=== PATIENT | female | born 1960 | race Caucasian/White ===

== ENCOUNTER 2020-10-16 05:58 | Inpatient (IN) ==
--- NOTE | 2020-10-09 13:29 | Anesthesiology Consultation ---
Date of Service October 09, 2020 Assessment & Plan (1) Encounter for pre-operative examination: Chart Review Chart Review: Acceptable Risk for Surgery (pending preop Covid testing and DOS coag ) and Patient NOT seen in Pre Admission Testing Discussed mildly elevated preop PT/INR with Dr. Galvez. PCP reviewed and aware and feels labs are stable. Per Dr. Galvez recommendations, will order full coag panel DOS to recheck. Per nursing assessment 10/08/2020, pt resides and works in [facility]. Works at [email or web address]. No recent exposure to Covid positive contacts. Wears mask, uses good hand hygiene and socially distances. No known Covid positive contacts or Covid related symptoms. No known Covid infection in the past 90 days. Pt scheduled for preop Covid testing 10/09/20 at [facility]= will await results. Patient seen by PCP 10/08/2020 = patient seen for preop visit. Per [facility] are stable. Recent chest x-ray and EKG reviewed and normal. Minimal WBC up seconda ry to recent Covid vaccine #1. Patient looks and feels well and in optimal medical condition. " Patient is cleared as an acceptable risk for right TKR... Risk include but not limited to infection, bleeding, clot, CVA, ID, " History Surgery Operation Date: 10/16/20 11:40 Proposed Procedures p Right Total Knee Arthroplasty - Sergio Romeo DO Height/Weight Height: 5 ft 7 in Weight: 136.078 kg Allergies Allergy/AdvReac Type Severity Reaction Status Date / Time No Known Allergies Allergy Verified 10/08/20 12:14 Medications Home Medications Medication Instructions Recorded Confirmed Last Taken acetaminophen [Tylenol Extra 1,000 mg PO Q6H PRN 07/29/20 10/08/20 Unknown Strength] atenolol 50 mg PO HS 07/29/20 10/08/20 Unknown cholecalciferol (vitamin D3) 50 mcg PO QAM 07/29/20 10/08/20 Unknown [Vitamin D3] febuxostat 40 mg PO QAM 07/29/20 10/08/20 Unknown omeprazole 20 mg PO QAM 07/29/20 10/08/20 Unknown sertraline 100 mg PO QAM 07/29/20 10/08/20 Unknown Past Medical History Medical History Anxiety Chronic kidney disease History of gastritis patient states that several years ago, workup for LIEN lead to an EGD which had some finding (? gastritis)- patient was put on omeprazole for this which she is still continuing/denies reflux Hypertension Morbid obesity Osteoarthritis Sleep apnea no device Past Family History Family History Father Family hx colonic polyps Uncle Family hx colonic polyps Uncle Family hx colonic polyps Family/Other Family hx colonic polyps Past Surgical History Surgical History History of cataract surgery left History of colonoscopy History of dilatation and curettage x2 History of esophagogastroduodenoscopy (EGD) History of laparoscopy for ovarian cyst Social History Smoking Status: Never smoker Do You Dip or Chew Tobacco: No Hx Alcohol Use: No Alcohol type: beer alcohol intake frequency: holidays/special occasions only Hx Substance Use: No Testing Laboratory Results 10/07/20= WBC: 11.16 H/H: 14.3/44.4 PLATELETS: 261 SODIUM: 133 POTASSIUM: 4.0 CHLORIDE: 100 CO2: 26 BUN: 24.8 CREATININE: 1.28 GLUCOSE: 90 HGB A1C: 5.5 PT: 13.8 INR: 1.20 UA: Negative Electrocardiogram Date: 08/03/20 Sinus rhythm at 65 bpm. Chest X-Ray Date: 08/02/20 Findings: + NAD
--- NOTE | 2020-10-09 14:23 | History & Physical Report ---
Date of Service October 09, 2020 date of surgery: 10/16/20 Procedure: Right Total Knee Arthroplasty Assessment & Plan (1) Arthritis of right knee: Further care discussed with patient and at this point in time has failed conservative measures and would like to proceed with a Right total knee replacement. Plan on discharge will be home with home health physical therapy. DVT prophalaxis with TEDs, SCDs and will also place on aspirin 81 mg p.o. b.i.d. for a month postop. Patient will have follow up appointment in our office two weeks post op for staple/suture removal and re-evaluation. Patient otherwise has no other questions or concerns. History of Present Illness Chief Complaint: Right knee pain Primary Care Provider: Dorothy Purcell Ms Meeks is a 59 year old female who complains of Right knee pain, presents for pre-op eval prior to a right total knee replacement. She presents with pain, decreased rom and stiffness in her right knee. She states that the symptoms have been chronic non-traumatic. her symptoms occur constantly with intermittent worsening. Currently the patient states that the symptoms are moderate. The pain is described as aching and throbbing. She rates her current pain as 6/10. The symptoms are aggravated by daily activities, kneeling and movement. she states that she has tried physical therapy as well as previous cortisone and visco injections without relief. she has tried IBU and now not able to take due to kidney disease. she does wear a brace on her right side. Allergies Allergy/AdvReac Type Severity Reaction Status Date / Time No Known Allergies Allergy Verified 10/08/20 12:14 Home Medications Medication Instructions Recorded Confirmed Type acetaminophen [Tylenol Extra 1,000 mg PO Q6H PRN 07/29/20 10/08/20 History Strength] atenolol 50 mg PO HS 07/29/20 10/08/20 History cholecalciferol (vitamin D3) 50 mcg PO QAM 07/29/20 10/08/20 History [Vitamin D3] febuxostat 40 mg PO QAM 07/29/20 10/08/20 History omeprazole 20 mg PO QAM 07/29/20 10/08/20 History sertraline 100 mg PO QAM 07/29/20 10/08/20 History Past Med/Surg History Medical History Anxiety Chronic kidney disease History of gastritis patient states that several years ago, workup for LIEN lead to an EGD which had some finding (? gastritis)- patient was put on omeprazole for this which she is still continuing/denies reflux Hypertension Morbid obesity Osteoarthritis Sleep apnea no device Surgical History History of cataract surgery left History of colonoscopy History of dilatation and curettage x2 History of esophagogastroduodenoscopy (EGD) History of laparoscopy for ovarian cyst Family History Father Family hx colonic polyps Uncle Family hx colonic polyps Uncle Family hx colonic polyps Family/Other Family hx colonic polyps Social History Smoking Status: Never smoker Second Hand Exposure: No; Do You Dip or Chew Tobacco: No; Hx Alcohol Use: No Hx Substance Use: No Preferred Language: Yemeni Communication Ability: Effective Line Out Man Required: No Beliefs That Will Affect Care: None Current Living Situation: Family Other Information That Helps Us Care for You: No Feels Safe at Home: Yes Safety Concerns: Feels Safe At This Time Assistive Devices: Brace/Splint/Immobilizer and Glasses Assistive Devices Comment: KNEE BRACE PRN Review of Systems Review of Systems: All systems reviewed & are unremarkable except as noted in HPI & below Constitutional: no fever, no chills and no sweats Respiratory: no cough and no dyspnea Cardiovascular: no chest pain, no dyspnea and no orthopnea Gastrointestinal: no abdominal pain, no nausea and no vomiting Musculoskeletal: as per Subjective / HPI Physical Exam Physical Exam: HT: 5ft 7in WT: 136kg Constitutional: WD/WN, vitals as above no acute distress Respiratory: normal respiratory effort, lungs clear to auscultation no respiratory distress, no labored breathing and does not use accessory muscles Cardiovascular: RRR, no murmur, no edema Gastrointestinal (Abdomen): normal bowel sounds, soft, nontender, no hepatosplenomegaly Musculoskeletal: Knee: + knee abnormal to inspection (Right knee-), + effusion (+1 effusion), + limited ROM of knee (ROM 0/3/110), + knee ROM with crepitation, + joint line tenderness (medial joint line) and + Ru's sign positive; no deformity, no skin erythema, no ecchymosis, no valgus laxity, no varus laxity, anterior drawer test negative, Arpit's sign negative and pivot shift test ne gative Results & Data Results & Data ([facility]) Diagnostic Findings Right Knee X-ray: Right knee series showing advanced degenerative changes to the right knee, narrowing of the medial compartment and patello-femoral joint with patellar spurring noted, findings showing joint space narrowing of the medial compartment and patello-femoral joint, osteophyte formation and subchondral sclerosis noted. overall varus alignment. no acute bony pathology noted.
[2020-10-16] MEDS ORDERED: ACETAMINOPHEN 500 MG TAB PO SCH (06:00)
[2020-10-16] MEDS ORDERED: CeleBREX 200 MG CAP PO SCH ×2 (06:00→21:00)
[2020-10-16] MEDS ORDERED: TRANEXAMIC ACID 1,000 MG **IV Pre-op IV SCH (06:00)
[2020-10-16] MEDS ORDERED: dexAMETHasone 4 MG TAB PO SCH (06:00)
[2020-10-16] MEDS ORDERED: TRANEXAMIC ACID 1,000 MG **IV Intra-op IV SCH (06:00)
[2020-10-16] MEDS ORDERED: LR 500ML BOLUS, THEN 15ML/HR IV SCH (06:00)
[2020-10-16] MEDS ORDERED: FAMOTIDINE 20 MG TAB PO SCH (06:00)
[2020-10-16] MEDS ORDERED: METOCLOPRAMIDE HCL 10 MG TABLET PO SCH (06:00)
[2020-10-16] MEDS ORDERED: ROPIVACAINE 0.5% HCL/PF 150 MG, BUPIVACAINE 0.75% MPF 20 ML, EPINEPHrine 30MG/30ML (OR ... INSTIL SCH (06:00)
[2020-10-16] MEDS ORDERED: GABAPENTIN 600 MG DOSE PO SCH (06:00)
[2020-10-16] MEDS ORDERED: ROPIVACAINE 0.5% 5 MG/ML 30 ML VIAL ONE (06:26)
[2020-10-16] MEDS ORDERED: BUPIVACAINE 0.5 % 5 MG/1 ML PF 10ML VIAL ONE (06:26)
[2020-10-16 06:59] LABS: INR 1.1 (0.9-1.1); Partial Thromboplastin Time 26.9 Seconds (21.0-31.0); Prothrombin Time 10.7 Seconds (9.0-12.0)
[2020-10-16] MEDS ORDERED: ORTHO JOINT ANESTHETIC ONE (07:07)
[2020-10-16] MEDS ORDERED: BACITRACIN INJ 50,000 UNIT VIAL ONE (07:07)
[2020-10-16] MEDS ORDERED: GLYCOPYRROLATE 0.2 MG/ML VIAL ONE (07:10)
[2020-10-16] MEDS ORDERED: KETAMINE 50 MG/5 ML SYRINGE ONE (07:10)
[2020-10-16] MEDS ORDERED: ONDANSETRON INJ 2 MG/ML 2 ML VIAL ONE (07:10)
[2020-10-16] MEDS ORDERED: DEXAMETHASONE SOD INJ 4 MG/ML VIAL ONE (07:10)
[2020-10-16] MEDS ORDERED: PROPOFOL IV EMULSION 10 MG/ML 20 ML VIAL IV ONE (07:10)
[2020-10-16] MEDS ORDERED: LIDOCAINE HCL 2% 2 ML VIAL/AMP(20MG/ML) INFIL ONE (07:10)
[2020-10-16] MEDS ORDERED: MIDAZOLAM HCL 1 MG/ML 2ML VIAL ONE (07:10)
[2020-10-16] MEDS ORDERED: KETOROLAC 30 MG/ML VIAL ONE (07:10)
--- NOTE | 2020-10-16 07:14 | History & Physical Bridge Note ---
Date of Service October 16, 2020 History & Physical Bridge Note I have examined the patient, reviewed the History & Physical and in the interval since the performance of the History & Physical I have noted the following changes of clinical significance: no changes noted
[2020-10-16] MEDS ORDERED: ONDANSETRON INJ 2 MG/ML 2 ML VIAL IV PRN ×2 (08:04→12:05)
[2020-10-16] MEDS ORDERED: ePHEDrine sulfate 50 MG/ML AMP IV PRN (08:04)
[2020-10-16] MEDS ORDERED: HYDROmorphone INJ 1 MG/ML SYRINGE IV PRN ×2 (08:04→12:05)
[2020-10-16] MEDS ORDERED: PROMETHAZINE HCL 12.5 MG in SODIUM CHLORIDE 0.9% 50 ML IV PRN (08:04)
[2020-10-16] MEDS ORDERED: ATROPINE SULFATE 0.1 MG/ML 10ML SYR IV PRN (08:04)
--- NOTE | 2020-10-16 09:47 | Operative Report ---
Post Operative Report Pre & Post Diagnosis Operation Date: 10/16/20 08:20 Pre-Op Diagnosis: Osteoarthritis Right Knee Post-Op Diagnosis: Osteoarthritis Right Knee I identified the patient and participated in the time-out.: Yes Procedure Operation Date: 10/16/20 08:20 Actual Procedures p Right Total Knee Arthroplasty(Right) right total knee arthroplasty utilizing [employer] journey 2 nonblock TKA size 5 femur 4 tibia 10 polyethylene 32 oval patella BMI 48.4- Sergio Romeo DO Surgeon Sergio Romeo DO Theatre Program Director Emanuel [employer] Estimated Blood Loss 5 Findings Consistent with Post-Op Diagnosis Patient presents with a BMI 48.4 with severe end-stage DJD right knee subchondral sclerosis marginal osteophytes varus alignment eburnated [id number] with moderate to large effusion Specimens Bone and cartilage Drains Medium bore Hemovac Anesthesia Type MAC Spinal Regional Complications none Disposition Accompanied Patient To Recovery: No Disposition: Recovery Room Indications Patient presents with severe end-stage tricompartmental degenerative joint disease failed attempted conservative measures including physical therapy anti- inflammatories relative rest activity modifications corticosteroid injections viscosupplementation the above intraoperative findings were noted Description of Procedure After proper prepping and draping of the Right lower extremity anterior midline incision was made over the region of the extensor extensor mechanism after meticulous hemostasis was obtained and maintained in subcutaneous tissues a medial parapatellar incision was made The patella was subluxed lateralward the medial lateral gutter were cleaned from any hypertrophic synovitis and scar tissue of the distal femoral block was placed and the distal femoral osteotomy cut was made subsequently the chamfers anterior and posterior osteotomy cuts were made utilizing the 4-in-1 block the tibia was subsequently subluxed anteriorward medial and ateral meniscal remnants were excised in their entirety remnants of the anterior and posterior cruciate ligaments were excised in their entirety excellent exposure of the proximal tibia was obtained the tibial osteotomy guide was placed on the proximal tibial osteotomy cut was made once again the knee was irrigated with copious amounts of sterile saline solution the patella was subsequently everted lateralward thickened scar tissue around the patella was removed the patella was subsequently cut utilizing a freehand technique and was drilled prepared for final preparation and placement of patella socially flexion-extension gaps were checked and the equal and symmetric trials were placed to the appropriate femoral and tibial trials with poly-spacer being placed for equal flexion and extension gaps and full range of motion including extension to 0 and flexion to 140 the trial components after having been taken to recovery range of motion was subsequently removed meticulous hemostasis was obtained and maintained subsequently a knee block injection of joint cocktail including ropivacaine 0.5% 150 mg. Bupivacaine 0.5% epinephrine 1-200,030 mL's toradol 30 mg dexamethasone 4 mg ketamine 10 mg clonidine 100 micrograms normal saline solution 30 mg was infiltrated into the soft tissues of the posterior knee medial lateral gutters and periosteal synovium special attention was paid to protect neurovascular structures at all times subsequently trial components having been removed the knee was irrigated with sterile saline solution. debris was removed the proximal tibia was subsequently prepared and was made ready for the placement of the tibial component tibial component was also cemented and tamped into position the femoral component was subsequently placed and cemented in the position the patellar component was subsequently cemented in position because hemostasis once again obtained and maintained wound having been thoroughly irrigated with debridement and debridement lavage was performed as well as a medial parapatellar incision closed with #1 Vicryl in interrupted fashion subcutaneous was closed with #2 Vicryl skin was closed with skin clips. PA-C was necessary for prepping and drapping as well as wound closure of deep fascia Sub cutaneous tissue and skin and was necessary for the case. A sterile compressive dressing was placed patient was taken to recovery in stable condition of report dictated by Ousmane I attest to the content of the Intraoperative Record and any orders documented therein. Any exceptions are noted below. I attest to the content of the Intraoperative Record and any orders documented therein. Any exceptions are noted below.
--- NOTE | 2020-10-16 11:09 | XRay Report ---
XR knee RT 1 or 2V routine CLINICAL HISTORY: Postoperative evaluation. COMPARISON: None FINDINGS: Alignment of the total right knee arthroplasty is anatomic. There is no periprosthetic fra cture or unexpected radiopaque foreign body. There are skin rhea and drains. IMPRESSION: Expected findings following total right knee arthroplasty. ACT 112: Negative or not required by law. Electronically signed by: Red Dumont M.D. 10/16/2020 11:08 AM
--- NOTE | 2020-10-16 11:37 | Anesthesiology Progress Note ---
Date of Service October 16, 2020 Anesthesia Post Procedure Vital Signs Vital Signs: Temp Pulse Pulse Resp BP BP Pulse Ox 10/16/20 11:25 36.8 C 69 16 120/63 96 10/16/20 11:15 36.8 C 68 16 120/62 94 10/16/20 11:05 36.8 C 74 19 125/68 94 10/16/20 10:55 69 17 116/60 94 10/16/20 10:45 69 17 109/62 94 10/16/20 10:35 77 15 122/62 96 10/16/20 10:26 84 18 100/53 L 95 10/16/20 07:25 61 18 157/69 H 93 10/16/20 06:53 36.7 C 63 18 143/70 H 96 Transfer of Care Handoff Completed per policy Notes Mental Status: alert / awake / arousable Patient Amnestic to Procedure: Yes Nausea / Vomiting: adequately controlled Pain: adequately controlled Airway Patency, RR, SpO2: stable & adequate BP & HR: stable & adequate Hydration State: stable & adequate Anesthetic Complications: no major complications apparent
[2020-10-16] MEDS ORDERED: NALOXONE HCL 0.4 MG/1 ML VIAL/CARP IV PRN (12:05)
[2020-10-16] MEDS ORDERED: bisacodyL 10 MG SUPP PR PRN (12:05)
[2020-10-16] MEDS ORDERED: MAGNESIUM HYDROXIDE SUSP 30 ML UDC PO PRN (12:05)
[2020-10-16] MEDS ORDERED: diphenhydrAMINE Capsule 25 MG CAP PO PRN (12:05)
[2020-10-16] MEDS ORDERED: METOCLOPRAMIDE HCL INJ 5 MG/ML 2 ML VIAL IV PRN (12:05)
[2020-10-16] MEDS: ceFAZolin 2000MG 2,000 MG/15 ML SYR IV SCH ×2 (14:05→21:35)
[2020-10-16] MEDS: KETOROLAC 30 MG/ML VIAL IV SCH ×2 (14:05→18:43)
[2020-10-16] MEDS: ACETAMINOPHEN 500 MG TAB PO SCH ×2 (14:05→21:34)
[2020-10-16] MEDS: SODIUM CHLORIDE 0.9% 1000ML 1,000 ML IV SCH (16:19)
[2020-10-16] MEDS: oxyCODONE HCL IR 5 MG TAB (IMMEDIATE RELEASE) PO PRN (19:40)
[2020-10-16] MEDS: SENNA 8.6 MG TAB PO SCH (20:32)
[2020-10-16] MEDS: ATENOLOL 50 MG TABLET PO SCH (20:33)
[2020-10-16] MEDS: DOCUSATE SODIUM 100 MG CAP PO SCH (20:33)
[2020-10-16] MEDS: ASPIRIN 81 MG ECTAB PO SCH (21:35)
[2020-10-17] MEDS: KETOROLAC 30 MG/ML VIAL IV SCH ×2 (00:12→06:25)
[2020-10-17] MEDS: SODIUM CHLORIDE 0.9% 1000ML 1,000 ML IV SCH (00:28)
[2020-10-17 06:00] LABS: Hematocrit (blood only) 37.7 % (37-47); Hemoglobin 12.5 g/dL (12.0-16.0); Mean Corpuscular Hemoglobin 26.2 pg (25-34); Mean Corpuscular Hgb Conc 33.2 g/dL (32-36); Mean Corpuscular Volume 78.9 fL (80-100); Mean Platelet Volume 9.9 fL (7.4-10.4); Platelet Count 222 K/uL (130-400); RDW Coefficient of Variation 15.2 % (11.5-14.5); RDW Standard Deviation 44.1 fL (36.4-46.3); Red Blood Count 4.78 M/uL (4.2-5.4); White Blood Count 11.49 K/uL (4.8-10.8)
[2020-10-17] MEDS: ACETAMINOPHEN 500 MG TAB PO SCH ×3 (06:25→21:12)
[2020-10-17 06:34] LABS: BUN Creatinine Ratio 17.5 (10-20); Calcium 9.2 mg/dl (8.5-10.1); Creatinine Clr Calc Pharmacy 57.4 ml/min; Est GFR (African American) 42.4; Est GFR (Non-African American) 36.6
--- NOTE | 2020-10-17 07:20 | Orthopedic Progress Note ---
Date of Service October 17, 2020 Assessment & Plan (1) History of total right knee replacement: POD #1 s/p Right TKA pt/ot dvt proph with ELOM/SCD/ASA plan for d/c home with home health Admission and Anticipated Discharge Date Admission Date: October 16, 2020 Supervising Physician Co-Signing Physician Notes Patient seen and examined. I agree with LYNDSAY Carrasco's note as above. Pain is well controlled. She has been ambulatory. Expected postoperative pain level. Subjective POD #1 s/p Right TKA Review of Systems Constitutional: no fever, no chills and no sweats Respiratory: no cough and no dyspnea Cardiovascular: no chest pain and no dyspnea Gastrointestinal: no abdominal pain, no nausea and no vomiting Physical Exam Physical Exam: Vital Signs Temp 36.6 C 10/17/20 03:27 Pulse 77 10/17/20 03:27 Resp 16 10/17/20 03:27 BP 106/66 10/17/20 03:27 Pulse Ox 97 10/17/20 03:27 Intake & Output 10/16/20 10/17/20 10/17/20 18:59 06:59 18:59 Intake Total 1700 / 2700 1000 / 2700 Output Total 25 / 550 525 / 550 Balance 1675 / 2150 475 / 2150 Weight 140 kg Intake: IV 600 / 1600 1000 / 1600 Lr 1,000 ml @ 15 mls/hr IV . 500 / 500 Q24H [facility] Rx#:[id number] Nss 1000ML 1,0 00 ml @ 100 mls/ 1000 / 1000 hr IV .Q10H [facility] Rx#:[id number] TRANEXAMIC ACI D / 0.7% NACL 1, 100 / 100 000 mg In 100 ml @ 600 mls/hr IV TODAY@0600 [facility] Rx#:[id number] IV Perioperative 1100 / 1100 Output: Urine 200 / 200 Estimated Blood Loss 5 / 5 Drain Output 20 / 345 325 / 345 Right Knee Hem ovac 20 / 345 325 / 345 Other: # Unmeasured Voi ds 1 Constitutional: WD/WN, vitals as above no acute distress Musculoskeletal: Right Leg: NVDI, calf SNT, negative jose sign. DP palpable, able to wiggle toes/ankle movement without difficulty. dressing clean dry and intact. Results & Data ([facility]) Vital Signs (Past 12 Hours) Vital Signs Temp Pulse Resp BP Pulse Ox 10/17/20 03:27 36.6 C 77 16 106/66 97 10/16/20 22:58 36.5 C 52 L 16 97/61 L 97 10/16/20 20:30 70 133/75 Laboratory Results Laboratory Results WBC 11.49 K/uL (4.8-10.8) H 10/17/20 05:43 RBC 4.78 M/uL (4.2-5.4) 10/17/20 05:43 Hgb 12.5 g/dL (12.0-16.0) 10/17/20 05:43 Hct 37.7 % (37-47) 10/17/20 05:43 MCV 78.9 fL (80-100) L 10/17/20 05:43 MCH 26.2 pg (25-34) 10/17/20 05:43 MCHC 33.2 g/dL (32-36) 10/17/20 05:43 RDW Std Deviation 44.1 fL (36.4-46.3) 10/17/20 05:43 RDW Coeff of Adi 15.2 % (11.5-14.5) H 10/17/20 05:43 Plt Count 222 K/uL (130-400) 10/17/20 05:43 MPV 9.9 fL (7.4-10.4) 10/17/20 05:43 PT 10.7 Seconds (9.0-12.0) 10/16/20 06:36 INR 1.1 (0.9-1.1) 10/16/20 06:36 APTT 26.9 Seconds (21.0-31.0) 10/16/20 06:36 PTT Ratio 1.0 10/16/20 06:36 Sodium 135 mmol/L (136-145) L 10/17/20 05:43 Potassium 5.0 mmol/L (3.5-5.1) 10/17/20 05:43 Chloride 104 mmol/L (98-107) 10/17/20 05:43 Carbon Dioxide 26 mmol/L (21-32) 10/17/20 05:43 Anion Gap 5.0 (3-11) 10/17/20 05:43 BUN 27 mg/dl (7-18) H 10/17/20 05:43 Creatinine 1.53 mg/dl (0.6-1.2) H 10/17/20 05:43 Est Cr Clr Drug Dosing 57.4 ml/min 10/17/20 05:43 Est GFR ( Amer) 42.4 10/17/20 05:43 Est GFR (Non-Af Amer) 36.6 10/17/20 05:43 BUN/Creatinine Ratio 17.5 (10-20) 10/17/20 05:43 Glucose 123 mg/dl (70-99) H 10/17/20 05:43 Calcium 9.2 mg/dl (8.5-10.1) 10/17/20 05:43 Blood Type A Positive 10/16/20 06:36 Antibody Screen NEGATIVE 10/16/20 06:36 Diagnostic Findings XR knee RT 1 or 2V routine CLINICAL HISTORY: Postoperative evaluation. COMPARISON: None FINDINGS: Alignment of the total right knee arthroplasty is anatomic. There is no periprosthetic fracture or unexpected radiopaque foreign body. There are skin rhea and drains. IMPRESSION: Expected findings following total right knee arthroplasty.
[2020-10-17] MEDS: MULTIVITAMIN TAB PO SCH (08:35)
[2020-10-17] MEDS: ASPIRIN 81 MG ECTAB PO SCH ×2 (08:35→21:11)
[2020-10-17] MEDS: CHOLECALCIFEROL 1,000 UNITS 25 MCG TAB PO SCH (08:35)
[2020-10-17] MEDS: FEBUXOSTAT 40 MG TABLET PO SCH (08:36)
[2020-10-17] MEDS: DOCUSATE SODIUM 100 MG CAP PO SCH ×2 (08:36→21:11)
[2020-10-17] MEDS: SERTRALINE HCL 100 MG TABLET PO SCH (08:36)
[2020-10-17] MEDS: PANTOprazole 40 MG TAB PO SCH (09:43)
[2020-10-17] MEDS: CeleBREX 200 MG CAP PO SCH ×2 (11:49→16:30)
[2020-10-17] MEDS: oxyCODONE HCL IR 5 MG TAB (IMMEDIATE RELEASE) PO PRN (16:25)
[2020-10-17] MEDS: SENNA 8.6 MG TAB PO SCH (21:12)
[2020-10-17] MEDS: ATENOLOL 50 MG TABLET PO SCH (21:16)
[2020-10-18] MEDS: ACETAMINOPHEN 500 MG TAB PO SCH (05:24)
[2020-10-18] MEDS: oxyCODONE HCL IR 5 MG TAB (IMMEDIATE RELEASE) PO PRN ×2 (08:20→12:10)
[2020-10-18] MEDS: PANTOprazole 40 MG TAB PO SCH (08:21)
[2020-10-18] MEDS: SERTRALINE HCL 100 MG TABLET PO SCH (08:21)
[2020-10-18] MEDS: CeleBREX 200 MG CAP PO SCH (08:21)
[2020-10-18] MEDS: ASPIRIN 81 MG ECTAB PO SCH (08:21)
[2020-10-18] MEDS: CHOLECALCIFEROL 1,000 UNITS 25 MCG TAB PO SCH (08:21)
[2020-10-18] MEDS: MULTIVITAMIN TAB PO SCH (08:21)
[2020-10-18] MEDS: FEBUXOSTAT 40 MG TABLET PO SCH (08:21)
[2020-10-18] MEDS: DOCUSATE SODIUM 100 MG CAP PO SCH (08:21)
--- NOTE | 2020-10-18 08:54 | Orthopedic Progress Note ---
Date of Service October 18, 2020 Assessment & Plan (1) History of total right knee replacement: POD #2 s/p Right TKA pt/ot dvt proph with ELMO/SCD/ASA plan for d/c home with home health Discontinue Celebrex. Plan to recheck BMP today. Patient states that she has had a history of elev ated creatinine over the years but was 1.2 prior to her admission and is sensitive to NSAID's. Patient feels good overall and is hoping to go home today. We discussed that we will see what her BUN and creatinine are today. If it is much higher, we discussed treating it here with IV fluids but if it is around the same or better that we will plan on discharging her home with a repeat BMP as an outpatient. Admission and Anticipated Discharge Date Admission Date: October 16, 2020 Subjective Postop day 2 Patient sitting up in her chair at the bedside eating breakfast. Pain controlled. No complaints. Patient stated that she will not be taking her Celebrex secondary to not wanting to use nonsteroidal anti-inflammatory medications due to previous CKD issues. She refused her Celebrex here but also has received several doses of Toradol. No other issues with medications. Physical Exam Physical Exam: Pari dressing is clean, dry, and intact. She has some mild bruising around the dressing. Calves are soft and nontender. Neurovascular is intact. Toes are mobile. Results & Data ([facility]) Vital Signs (Past 12 Hours) Vital Signs Temp Pulse Pulse Resp BP Pulse Ox 10/18/20 07:22 36.5 C 75 16 115/76 92 10/17/20 22:13 36.6 C 52 L 18 117/70 96 10/17/20 21:16 50 L 126/84
[2020-10-18 09:28] LABS: BUN Creatinine Ratio 16.5 (10-20); Calcium 9.8 mg/dl (8.5-10.1); Creatinine Clr Calc Pharmacy 59.3 ml/min; Est GFR (African American) 44.1; Est GFR (Non-African American) 38.1; Potassium 5.2 mmol/L (3.5-5.1)
[2020-10-18] MEDS ORDERED: SODIUM CHLORIDE 0.9% 1000ML 500 ML IV ONE (10:36)
--- NOTE | 2020-10-18 11:16 | Discharge Summary ---
Date of Service date of discharge: October 18, 2020 date of admission: 10/16/20 Admission HPI Per Admitting Provider Ms Meeks is a 59 year old female who complains of Right knee pain, presents for pre-op eval prior to a right total knee replacement. She presents with pain, decreased rom and stiffness in her right knee. She states that the symptoms have been chronic non-traumatic. her symptoms occur constantly with intermittent worsening. Currently the patient states that the symptoms are moderate. The pain is described as aching and throbbing. She rates her current pain as 6/10. The symptoms are aggravated by daily activities, kneeling and movement. she states that she has tried physical therapy as well as previous cortisone and visco injections without relief. she has tried IBU and now not able to take due to kidney disease. she does wear a brace on her right side. Principal Diagnosis right knee arthritis Discharge Exam Vital Signs Temp 36.5 C 10/18/20 09:20 Pulse 75 10/18/20 09:20 Resp 16 10/18/20 09:20 BP 115/76 10/18/20 09:20 Pulse Ox 92 10/18/20 09:20 Intake & Output 10/17/20 10/18/20 10/18/20 18:59 06:59 18:59 Output Total 215 / 215 Balance -215 / -215 - -1 Weight 140 kg Output: Drain Output 215 / 215 Right Knee Hemovac 215 / 215 # Bowel Movements Other: # Unmeasured Voids 1 Constitutional WD/WN, vitals as above no acute distress Musculoskeletal Right Knee: NVDI, calf SNT, negative jose sign. DP palpable, able to wiggle toes/ankle movement without difficulty. SAGAR dressing clean dry and intact. expected post-operative bruising noted. Discharge Data Allergies Allergy/AdvReac Type Severity Reaction Status Date / Time No Known Allergies Allergy Verified 10/16/20 06:48 Consultations 10/16/20 12:05 Consult Case Management - Discharge Planning Routine Procedures Performed Operation Date: 10/16/20 08:20 Actual Procedures p Right Total Knee Arthroplasty(Right) - Sergio Romeo DO Ordered Studies 10/16/20 05:00 US - OR guided needle placemen Routine Hospital Course (1) History of total right knee replacement: POD #2 s/p Right TKA pt/ot dvt proph with ELMO/SCD/ASA plan for d/c home with home health Discontinue Celebrex. Plan to recheck BMP today. Patient states that she has had a history of elevated creatinine over the years but was 1.2 prior to her admission and is sensitive to NSAID's. Patient feels good overall and is hoping to go home today. We discussed that we will see what her BUN and creatinine are today. If it is much higher, we discussed treating it here with IV fluids but if it is around the same or better that we will plan on discharging her home with a repeat BMP as an outpatient. Total Time Total Time Spent Total Time Spent (In Minutes): 20 Total Time Includes: Examination of the Patient, Discharge Planning and Medication Reconciliation Discharge Plan Discharge Items Patient Disposition: Home - Home Health Services Reason For Visit: Osteoarthritis Right Knee Discharge Diagnosis: Right total knee replacement Activity: Per Instructions section Lifting: Wait until after follow-up appointment Weightbearing Comment: WBAT with walker Non-emergency contact: Surgeon Call non-emergency contact if: your symptoms worsen, your temperature is above 101, your wound has increased redness, your wound has increased drainage and your wound pain has increased Follow-up/Referrals: Sergio Romeo DO [Surgeon] - (10-14 days from the day of surgery) Pete Cole DO [Primary Care Provider] - Diet: Regular Ambulatory Orders: Basic Metabolic Panel (Routine) Timeframe: 3 Days Location: Determined by Patient Ordered By: Ti Rg Attending Provider Instructions: CONTINUE TO DRINK LOTS OF FLUIDS WHEN YOU GET HOME. YOU WILL HAVE A PRESCRIPTION FOR BLOOD WORK IN YOUR DISCHARGE PAPERS. HOME HEALTH WILL DRAW YOUR BLOOD ON Wednesday10/21/20. RESULTS NEED TO BE SENT TO YOUR PRIMARY CARE PROVIDER ACTIVITY RECOMMENDATIONS: SELF CARE INSTRUCTIONS AFTER TOTAL KNEE REPLACEMENT A. You may need to continue a physical therapy program after discharge from the hospital. There are several options available to you. Your doctor will assist you in selecting the best one for you. 1. An out-patient facility 2 to 3 times a week for therapy or home therapy. 2. Continue working on all exercises taught to you in the hospital. Your goals should be to increase bending of your knee to 90 degrees and beyond and to fully straighten your knee. B. You may progress at your own pace from walking with a walker or crutches to a cane; then to no assistive devices. C. Make walking a part of your daily routine. Be up as much as comfortable with rest periods throughout the day. Rest with leg elevation is very important. Use the ice wrap frequently for the first 3-4 weeks. D. There are no restrictions on activities. You may ride in a car, shop, participate in sketch liner and all social activities. E. Wear the long elastic stockings (ELMO hose) 20 hours a day for 2 weeks after surgery. They can be removed several times a day for laundering and for a bath. F. You may shower, no tub baths until cleared by your doctor. SPECIAL CARE INSTRUCTIONS: VERY IMPORTANT TO READ AND REVIEW A. There are a few signs you need to watch for after you are home. Call [facility] if you notice any of the followin. Increased severe knee pain. Some pain is expected especially when you exercise. 2. Increased swelling in your leg or knee; pain or swelling of the calf muscle in either lower leg. 3. Any fluid drainage from the incision. 4. Shortness of breath or chest pain. B. Please call [facility] at if you have any concerns or questions about your operation or recovery. The doctor or his nurse will return your call promptly. C. You must take antibiotics before dental work, bladder, bowel or other surgery. Your doctor will provide you with a permanent care to carry describing this precaution. IMPORTANT: * REMEMBER TO TAKE ASPIRIN, 81 MG, TWICE DAILY FOR 4 WEEKS UNLESS OTHERWISE DIRECTED. THIS IS YOUR BLOOD THINNER. * HIGH RISK PATIENTS MAY BE PRESCRIBED A STRONGER BLOOD THINNER. THIS WILL BE PROVIDED AT DISCHARGE. * CALL IF INCREASED PAIN, REDNESS, DRAINAGE OR FEVER GREATER THAT 101. * WEAR ELMO HOSE 20 HOURS PER DAY FOR 2 WEEKS. * SAGAR Dressing- This is a large suction dressing covering your incision. This will help pull any excess drainage from the wound and allow your incision to heal properly. You may shower with this if you can keep the unit outside of the shower. If any bleeding or leakage is noted please call your doctor's office. This will remain on your incision for 7 days and then should be removed. This can be done yourself or by the home nursing staff if applicable. The entire unit is disposable once removed. Once removed, keep incision clean and dry. If redness or drainage is noted, please call your surgeon. IF INCISION IS LEAKING THROUGH DRESSING, CALL THE OFFICE . FOLLOW UP VISIT: If appointment is not already scheduled: Please call [facility] to make a follow-up appointment for 2 weeks after your surgery at . Pending Studies at Discharge: No Stand-Alone Forms: My [facility] [employer], Opioid Pain Management, Smoking Cessation Medications and DC Order Prescriptions: New aspirin 81 mg Tablet,Delayed Release (Dr/Ec) 81 mg PO BID 30 Days Qty: 60 RF: 0 acetaminophen 500 mg Tablet 1,000 mg PO Q8 21 Days Qty: 126 RF: 0 oxycodone 5 mg Tablet 5 - 10 mg PO Q6H PRN (Reason: pain) Qty: 30 RF: 0 docusate sodium 100 mg Capsule 100 mg PO BID 10 Days Qty: 20 RF: 0 cefadroxil 500 mg capsule 500 mg PO BID 10 Days Qty: 20 RF: 0 Continued sertraline [Zoloft] 100 mg Tablet 100 mg PO QAM RF: 0 atenolol 50 mg Tablet 50 mg PO HS RF: 0 cholecalciferol (vitamin D3) [Vitamin D3] 50 mcg (2,000 unit) Tablet 50 mcg PO QAM RF: 0 febuxostat [Uloric] 40 mg Tablet 40 mg PO QAM RF: 0 omeprazole 20 mg Tablet,Disintegrat, Delay Rel 20 mg PO QAM RF: 0 Discontinued acetaminophen [Tylenol Extra Strength] 500 mg Capsule 1,000 mg PO Q6H PRN (Reason: Pain) RF: 0 Discharge Orders: Discharge Order (Routine); Ordered 10/18/20 Ordered By: Ti Landa/Other Patient Handouts: DVT Post Op Prevention, ED Garry Elliott Admission Data Admit Date/Time: 10/16/20 15:41 Attending Provider: Sergio Romeo Admit Provider: Sergio Romeo Primary Care Provider: Pete Cloe Other Interventions: Discharge Summary Assessment (RN) Last Done: 10/18/20 09:20
== END 2020-10-18 13:09 | disposition home health service (06) | DRG 470 ==
LOC: ASU 05:58 → 3E 05:58

== ENCOUNTER 2021-02-04 07:26 | Observation (INO) ==
--- NOTE | 2021-01-13 08:40 | History & Physical Report ---
Date of Service January 13, 2021 Date of surgery: 02/04/21 Procedure: Left Total Knee Replacement Assessment & Plan (1) Arthritis of knee, left: Further care discussed with patient and at this point in time has failed conservative measures and would like to proceed with a left total knee repla cement. Plan on discharge will be home with home health physical therapy. DVT prophalaxis with TEDs, SCDs and will also place on aspirin 81 mg p.o. b.i.d. for a month postop. Patient will have follow up appointment in our office two weeks post op for staple/suture removal and re-evaluation. Patient otherwise has no other questions or concerns. The risks and benefits have been discussed including, but not limited to, risk of infection, nerve injury, stiffness, loss of motion, failure to improve, etc. Reasonable outcomes and options of treatment were discussed. An explanation of appropriate alternatives to the procedure that may be advantageous were discussed and their risks and benefits, as well as the risks and benefits of not proceeding with treatment. I offered to answer any additional inquiries concerning the treatment involved. All the patient's questions were answered. The patient is agreeable, understanding of the treatment plan and alternatives, and wishes to proceed with the treatment plan. History of Present Illness Chief Complaint: left knee pain Primary Care Provider: Pete Cole DO Ms Meeks is a 60 year old female who complains of left knee pain, presents for pre-op eval prior to a left total knee replacement. She presents with pain and stiffness in her left knee. She states that the symptoms have been chronic non- traumatic. Currently the patient states that the symptoms are moderate and is described as aching and throbbing. She rates her current pain as 6/10. The symptoms are aggravated by daily activities, kneeling and movement. she states that she has tried physical therapy as well as previous cortisone and visco injections without relief. she has tried IBU and now not able to take due to kidney disease. she does wear a brace on her left knee. she recently underwent right TKA and is recovering well. Allergies Allergy/AdvReac Type Severity Reaction Status Date / Time No Known Allergies Allergy Verified 10/16/20 06:48 Home Medications Medication Instructions Recorded Confirmed Type atenolol 50 mg PO HS 07/29/20 10/16/20 History cholecalciferol (vitamin D3) 50 mcg PO QAM 07/29/20 10/16/20 History [Vitamin D3] febuxostat [Uloric] 40 mg PO QAM 07/29/20 10/16/20 History omeprazole 20 mg PO QAM 07/29/20 10/08/20 History sertraline [Zoloft] 100 mg PO QAM 07/29/20 10/16/20 History oxycodone 5 - 10 mg PO Q6H PRN #30 tab 10/17/20 Rx Past Med/Surg History Medical History Anxiety Chronic kidney disease History of gastritis patient states that several years ago, workup for LIEN lead to an EGD which had some finding (? gastritis)- patient was put on omeprazole for this which she is still continuing/denies reflux Hypertension Morbid obesity Osteoarthritis Sleep apnea no device Surgical History History of cataract surgery left History of colonoscopy History of dilatation and curettage x2 History of esophagogastroduodenoscopy (EGD) History of laparoscopy for ovarian cyst Family History Father Family hx colonic polyps Uncle Family hx colonic polyps Uncle Family hx colonic polyps Family/Other Family hx colonic polyps Social History Smoking Status: Never smoker Second Hand Exposure: No; Hx Alcohol Use: No Hx Substance Use: No Preferred Language: Persian Communication Ability: Effective Snuff Maker Required: No Beliefs That Will Affect Care: None Current Living Situation: Family Feels Safe at Home: Yes Assistive Devices: Walker Review of Systems Review of Systems: All systems reviewed & are unremarkable except as noted in HPI & below Constitutional: no fever, no chills and no sweats Respiratory: no cough and no dyspnea Cardiovascular: no chest pain, no dyspnea and no orthopnea Gastrointestinal: no abdominal pain, no nausea and no vomiting Musculoskeletal: as per Subjective / HPI Physical Exam Physical Exam: HT: 5ft 7in WT: 136kg Constitutional: WD/WN, vitals as above no acute distress Respiratory: normal respiratory effort, lungs clear to auscultation no respiratory distress, no labored breathing and does not use accessory muscles Cardiovascular: RRR, no murmur, no edema Gastrointestinal (Abdomen): normal bowel sounds, soft, nontender, no hepatosplenomegaly Musculoskeletal: Knee: + knee abnormal to inspection (LEFT KNEE: ), + effusion (+1 effusion), + limited ROM of knee (ROM 0/3/110), + knee ROM with crepitation, + joint line tenderness (medial joint line) and + Ru's sign positive; no deformity, no skin erythema, no ecchymosis, no valgus laxity, no varus laxity, anterior drawer test negative, Arpit's sign negative and pivot shift test negative Results & Data Results & Data ([facility]) Diagnostic Findings Left Knee X-ray: left knee series confirm advanced degenerative changes to the left knee, greatest medial compartments and patellofemoral joint, showing joint space narrowing, osteophyte formation and subchondral sclerosis. no acute bony pathology noted.
--- NOTE | 2021-01-29 13:18 | Anesthesiology Consultation ---
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 Preoperative COVID19 testing to be completed on 01/31. S/P TKA 10/16/20 @ [facility] -- SAB @ L3-L4 with regional block, no complications per records. H/o mildly elevated coags. PT/INR near-normal on 12/29/20 pre-op labs. Given plan for SAB, will order to be rechecked AM DOS prior to proceeding with SAB. Chart Review Chart Review: Acceptable Risk for Surgery and Patient NOT seen in Pre Admission Testing History Surgery Operation Date: 02/04/21 08:15 Proposed Procedures p Left Total Knee Arthroplasty - Sergio Romeo DO Height/Weight Height: 5 ft 7 in Weight: 136.078 kg Allergies Allergy/AdvReac Type Severity Reaction Status Date / Time No Known Allergies Allergy Verified 01/29/21 11:42 Medications Home Medications Medication Instructions Recorded Confirmed Last Taken atenolol 50 mg PO HS 07/29/20 01/29/21 10/15/20 20:00 cholecalciferol (vitamin D3) 50 mcg PO QAM 07/29/20 01/29/21 10/15/20 07:00 [Vitamin D3] febuxostat [Uloric] 40 mg PO QAM 07/29/20 01/29/21 10/16/20 05:00 omeprazole 20 mg PO QAM 07/29/20 01/29/21 10/16/20 05:00 sertraline [Zoloft] 100 mg PO QAM 07/29/20 01/29/21 10/16/20 05:00 oxycodone 5 - 10 mg PO Q6H PRN #30 tab 10/17/20 01/29/21 Unknown Past Medical History Medical History Anxiety 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 gastritis)- patient was put on omeprazole for this which she is still continuing/denies reflux Hypertension Morbid obesity Osteoarthritis Sleep apnea no device Past Family History Family History Father Family hx colonic polyps Uncle Family hx colonic polyps Uncle Family hx colonic polyps Family/Other Family hx colonic polyps Past Surgical History Surgical History History of cataract surgery left History of colonoscopy History of dilatation and curettage x2 History of esophagogastroduodenoscopy (EGD) History of laparoscopy for ovarian cyst History of right knee joint replacement 10/16/20 [facility] Social History Smoking Status: Never smoker Do You Dip or Chew Tobacco: No Hx Alcohol Use: No Alcohol type: beer alcohol intake frequency: holidays/special occasions only Hx Substance Use: No substance use type: does not use Testing Laboratory Results 12/29/20 WBC: 7.01 H/H: 13.7/43.8 PLATELETS: 257 SODIUM: 134 POTASSIUM: 4.5 CHLORIDE: 101 CO2: 29 BUN: 16.7 CREATININE: 1.20 GLUCOSE: 112 A1C: 5.5% PT: 12.2 PTT: 33.6 INR: 1.12 UA/culture: <10k cfu/ml multiple gram + and gram - organisms present, no sensitivity performed. *Pt has h/o mildly elevated coags. Were also mildly elevated on pre-op labs in September. Sent to PCP for their review, felt stable. Recheck AM DOS showed values WNL. Electrocardiogram Date: 08/03/20 Findings: + NSR @ (65bpm) Chest X-Ray Date: 08/02/20 Findings: + NAD
[~2021-02-04 07:26] MED LIST: ACETAMINOPHEN 500 MG TAB PO SCH; BUPIVACAINE 0.25% 30 ML VIAL ONE; BUPIVACAINE 0.5 % 5 MG/1 ML PF 10ML VIAL ONE; CeleBREX 200 MG CAP PO SCH; FAMOTIDINE 20 MG TAB PO SCH; GABAPENTIN 300 MG CAP PO SCH; LR 500ML BOLUS, THEN 15ML/HR IV SCH; METOCLOPRAMIDE HCL 10 MG TABLET PO SCH; ROPIVACAINE 0.5% HCL/PF 150 MG, BUPIVACAINE 0.75% MPF 20 ML, EPINEPHrine 30MG/30ML (OR ... INSTIL SCH; TRANEXAMIC ACID 1,000 MG **IV Intra-op IV SCH; TRANEXAMIC ACID 1,000 MG **IV Pre-op IV SCH; dexAMETHasone 4 MG TAB PO SCH; oxyCODONE HCL 10 MG TABCR (OxyCONTIN) PO SCH
[2021-02-04 08:33] LABS: Partial Thromboplastin Time 26.9 Seconds (21.0-31.0); Prothrombin Time 10.4 Seconds (9.0-12.0)
[2021-02-04] MEDS ORDERED: KETAMINE 50 MG/5 ML SYRINGE ONE (09:10)
[2021-02-04] MEDS ORDERED: MIDAZOLAM HCL 1 MG/ML 2ML VIAL ONE (09:10)
[2021-02-04] MEDS ORDERED: ONDANSETRON INJ 2 MG/ML 2 ML VIAL ONE (09:11)
[2021-02-04] MEDS ORDERED: KETOROLAC 30 MG/ML VIAL ONE (09:11)
[2021-02-04] MEDS ORDERED: LIDOCAINE 2% 2 ML VIAL/AMP(20MG/ML) INFIL ONE (09:11)
[2021-02-04] MEDS ORDERED: PROPOFOL IV EMULSION 10 MG/ML 20 ML VIAL IV ONE (09:11)
[2021-02-04] MEDS ORDERED: GLYCOPYRROLATE 0.2 MG/ML VIAL ONE (09:11)
[2021-02-04] MEDS ORDERED: DEXAMETHASONE SOD INJ 4 MG/ML VIAL ONE (09:11)
--- NOTE | 2021-02-04 10:09 | History & Physical Bridge Note ---
Date of Service February 04, 2021 History & Physical Bridge Note I have examined the patient, reviewed the History & Physical and in the interval since the performance of the History & Physical I have noted the following changes of clinical significance: no changes noted
[2021-02-04] MEDS ORDERED: ORTHO JOINT ANESTHETIC ONE (10:42)
[2021-02-04] MEDS ORDERED: ONDANSETRON INJ 2 MG/ML 2 ML VIAL IV PRN ×2 (11:30→14:15)
[2021-02-04] MEDS ORDERED: ATROPINE SULFATE 0.1 MG/ML 10ML SYR IV PRN (11:30)
[2021-02-04] MEDS ORDERED: fentaNYL citrate 100 MCG/2 ML VIAL IV PRN (11:30)
[2021-02-04] MEDS ORDERED: ePHEDrine sulfate 50 MG/ML AMP IV PRN (11:30)
--- NOTE | 2021-02-04 12:35 | Operative Report ---
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 [employer] Estimated Blood Loss 5 Findings Consistent with Post-Op Diagnosis Patient presents with severe end-stage DJD left knee and known response to conservative management with eburnated [id number] marginal osteophytes subchondral sclerosis subchondral cystic changes tricompartmental DJD with m oderate to large effusion Specimens Bone and cartilage Drains Medium bore Hemovac Anesthesia Type MAC Epidural Regional Complications none Disposition Accompanied Patient To Recovery: No Disposition: Recovery Room Indications Patient presents with severe end-stage DJD failed attempted conservative management clinic physical therapy anti-inflammatories relative rest activity modification corticosteroid injection viscosupplementation the above intraoperative findings were noted Description of Procedure After proper prepping and draping of the left lower extremity anterior midline incision was made over the region of the extensor extensor mechanism after meticulous hemostasis was obtained and maintained in subcutaneous tissues a medial parapatellar incision was made The patella was subluxed lateralward the medial lateral gutter were cleaned from any hypertrophic synovitis and scar tissue of the distal femoral block was placed and the distal femoral osteotomy cut was made subsequently the chamfers anterior and posterior osteotomy cuts were made utilizing the 4-in-1 block the tibia was subsequently subluxed anteriorward medial and ateral meniscal remnants were excised in their entirety remnants of the anterior and posterior cruciate ligaments were excised in their entirety excellent exposure of the proximal tibia was obtained the tibial osteotomy guide was placed on the proximal tibial osteotomy cut was made once again the knee was irrigated with copious amounts of sterile saline solution the patella was subsequently everted lateralward thickened scar tissue around the patella was removed the patella was subsequently cut utilizing a freehand technique and was drilled prepared for final preparation and placement of patella socially flexion-extension gaps were checked and the equal and symmetric trials were placed to the appropriate femoral and tibial trials with poly-spacer being placed for equal flexion and extension gaps and full range of motion including extension to 0 and flexion to 140 the trial components after having been taken to recovery range of motion was subsequently removed meticulous hemostasis was obtained and maintained subsequently a knee block injection of joint cocktail including ropivacaine 0.5% 150 mg. Bupivacaine 0.5% epinephrine 1-200,030 mL's toradol 30 mg dexamethasone 4 mg ketamine 10 mg clonidine 100 micrograms normal saline solution 30 mg was infiltrated into the soft tissues of the posterior knee medial lateral gutters and periosteal synovium special attention was paid to protect neurovascular structures at all times subsequently trial components having been removed the knee was irrigated with sterile saline solution. debris was removed the proximal tibia was subsequently prepared and was made ready for the placement of the tibial component tibial component was also cemented and tamped into position the femoral component was subsequently placed and cemented in the position the patellar component was subsequently cemented in position because hemostasis once again obtained and maintained wound having been thoroughly irrigated with debridement and debridement lavage was performed as well as a medial parapatellar incision closed with #1 Vicryl in interrupted fashion subcutaneous was closed with #2 Vicryl skin was closed with skin clips. PA-C was necessary for prepping and drapping as well as wound closure of deep fascia Sub cutaneous tissue and skin and was necessary for the case. A sterile compressive dressing was placed patient was taken to recovery in stable condition of report dictated by Ousmane I attest to the content of the Intraoperative Record and any orders documented therein. Any exceptions are noted below. I attest to the content of the Intraoperative Record and any orders documented therein. Any exceptions are noted below.
--- NOTE | 2021-02-04 13:28 | Anesthesiology Progress Note ---
Date of Service February 04, 2021 Anesthesia Post Procedure Vital Signs Vital Signs: Temp Pulse Pulse Resp BP BP Pulse Ox 02/04/21 13:20 62 16 104/61 94 02/04/21 13:14 37.1 C 78 16 95/59 L 94 02/04/21 08:26 36.6 C 66 20 158/86 H 95 Transfer of Care Handoff Completed per policy Notes Mental Status: alert / awake / arousable and participated in evaluation Nausea / Vomiting: adequately controlled Pain: adequately controlled Airway Patency, RR, SpO2: stable & adequate BP & HR: stable & adequate Hydration State: stable & adequate Neuraxial Anesthesia: was administered and sensory block is resolving Anesthetic Complications: no major complications apparent and Pt Satisfied with anesthetic care
--- NOTE | 2021-02-04 13:52 | XRay Report ---
XR knee LT 1 or 2V routine HISTORY: 60 years-old Female Surgical Post Op left knee total joint arthroplasty COMPARISON: None TECHNIQUE: 2 views of the left knee FINDINGS: Left knee total joint arthroplasty and patella resurfacing. Anterior midline skin rhea are noted a long with expected postoperative soft tissue swelling and deep tissue air. Surgical drainage catheter . No acute fracture, dislocation or unexpected opaque foreign body. IMPRESSION: Left knee total joint arthroplasty with expected postoperative changes. ACT 112: Negative or not required by law. The above report was generated using voice recognition software. It may contain grammatical, syntax o r spelling errors. Electronically signed by: Vinny Maki M.D. 02/04/2021 1:51 PM
[2021-02-04] MEDS ORDERED: MAGNESIUM HYDROXIDE SUSP 30 ML UDC PO PRN (14:15)
[2021-02-04] MEDS ORDERED: NALOXONE HCL 0.4 MG/1 ML VIAL/CARP IV PRN (14:15)
[2021-02-04] MEDS ORDERED: bisacodyL 10 MG SUPP PR PRN (14:15)
[2021-02-04] MEDS ORDERED: diphenhydrAMINE Capsule 25 MG CAP PO PRN (14:15)
[2021-02-04] MEDS ORDERED: HYDROmorphone INJ 1 MG/ML SYRINGE IV PRN (14:15)
[2021-02-04] MEDS ORDERED: METOCLOPRAMIDE HCL INJ 5 MG/ML 2 ML VIAL IV PRN (14:15)
[2021-02-04] MEDS: ACETAMINOPHEN 500 MG TAB PO SCH ×2 (15:12→21:54)
[2021-02-04] MEDS: SODIUM CHLORIDE 0.9% 1000ML 1,000 ML IV SCH (15:12)
[2021-02-04] MEDS: KETOROLAC 30 MG/ML VIAL IV SCH ×2 (15:12→21:54)
[2021-02-04] MEDS: oxyCODONE HCL IR 5 MG TAB (IMMEDIATE RELEASE) PO PRN ×2 (18:52→23:26)
[2021-02-04] MEDS: DOCUSATE SODIUM 100 MG CAP PO SCH (18:54)
[2021-02-04] MEDS: ceFAZolin 2000MG 2,000 MG/15 ML SYR IV SCH (20:40)
[2021-02-04] MEDS: ASPIRIN 81 MG ECTAB PO SCH (20:41)
[2021-02-04] MEDS ORDERED: ATENOLOL 50 MG TABLET PO SCH (21:00)
[2021-02-04] MEDS ORDERED: SENNA 8.6 MG TAB PO SCH (21:00)
[2021-02-05] MEDS: SODIUM CHLORIDE 0.9% 1000ML 1,000 ML IV SCH (00:59)
[2021-02-05] MEDS: KETOROLAC 30 MG/ML VIAL IV SCH (05:06)
[2021-02-05] MEDS: ceFAZolin 2000MG 2,000 MG/15 ML SYR IV SCH (05:07)
[2021-02-05] MEDS: ACETAMINOPHEN 500 MG TAB PO SCH ×2 (05:07→13:28)
[2021-02-05] MEDS: oxyCODONE HCL IR 5 MG TAB (IMMEDIATE RELEASE) PO PRN ×3 (05:15→15:30)
[2021-02-05 06:15] LABS: Hematocrit (blood only) 35.4 % (37-47); Hemoglobin 11.5 g/dL (12.0-16.0); Mean Corpuscular Hemoglobin 26.1 pg (25-34); Mean Corpuscular Hgb Conc 32.5 g/dL (32-36); Mean Corpuscular Volume 80.3 fL (80-100); Mean Platelet Volume 9.5 fL (7.4-10.4); Platelet Count 202 K/uL (130-400); RDW Coefficient of Variation 15.5 % (11.5-14.5); RDW Standard Deviation 45.8 fL (36.4-46.3); Red Blood Count 4.41 M/uL (4.2-5.4); White Blood Count 11.49 K/uL (4.8-10.8)
[2021-02-05 06:49] LABS: BUN Creatinine Ratio 17.8 (10-20); Calcium 8.6 mg/dl (8.5-10.1); Creatinine Clr Calc Pharmacy 50.2 ml/min; Est GFR (African American) 36.6 ml/min; Est GFR (Non-African American) 31.5 ml/min; Potassium 4.7 mmol/L (3.5-5.1)
[2021-02-05] MEDS ORDERED: SODIUM CHLORIDE 0.9% 1000ML 500 ML IV ONE (08:38)
--- NOTE | 2021-02-05 08:42 | Orthopedic Progress Note ---
Date of Service February 05, 2021 Assessment & Plan (1) Arthritis of knee, left: Postop day 1 status post left total knee arthroplasty. PT/OT protocols. Weightbearing as tolerated. DVT prophylaxis-aspirin p.o. twice daily, SCDs, ELMO [place]. Pain management as written. CKD-plan for normal saline bolus this morning and we will recheck her creatinine later this afternoon. We discussed that if her creatinine is worsening, she would likely stay 1 more day possibly to receive IV fluids, however if it is the same or a little bit better we will plan on discharging her home with plans to do a BMP through home health in a few days. Plans to be to follow-up with her primary care physician in the next week. Discharge planning-patient is planning for home health services upon discharge. Admission and Anticipated Discharge Date Admission Date: February 04, 2021 Subjective Postop day 1 Patient currently sitting up in bed awake and alert. No complaints this morning. Pain is controlled. Denies shortness of breath, chest pain, lightheadedness. Patient with a history of CKD and creatinine was 1.7 this morning. We discussed her history and she states that this was a little bit above her normal. Previous admission showed creatinine at 1.52. No other issues this morning. Patient is hoping to go home today. Physical Exam Physical Exam: Dressings are clean, dry, and intact. Calves are soft and nontender. Neurovascular intact. Toes are mobile. She has good dorsiflexion and plantarflexion of her left foot. Minimal drainage from her Hemovac. Results & Data ([facility]) Vital Signs (Past 12 Hours) Vital Signs Temp Pulse Resp BP Pulse Ox 02/05/21 07:17 36.7 C 61 16 134/66 96 02/05/21 02:59 36.7 C 61 18 115/72 92 02/04/21 23:01 36.5 C 62 18 106/69 91 Laboratory Results Laboratory Results WBC 11.49 K/uL (4.8-10.8) H 02/05/21 05:53 RBC 4.41 M/uL (4.2-5.4) 02/05/21 05:53 Hgb 11.5 g/dL (12.0-16.0) L 02/05/21 05:53 Hct 35.4 % (37-47) L 02/05/21 05:53 MCV 80.3 fL (80-100) 02/05/21 05:53 MCH 26.1 pg (25-34) 02/05/21 05:53 MCHC 32.5 g/dL (32-36) 02/05/21 05:53 RDW Std Deviation 45.8 fL (36.4-46.3) 02/05/21 05:53 RDW Coeff of Adi 15.5 % (11.5-14.5) H 02/05/21 05:53 Plt Count 202 K/uL (130-400) 02/05/21 05:53 MPV 9.5 fL (7.4-10.4) 02/05/21 05:53 PT 10.4 Seconds (9.0-12.0) 02/04/21 08:01 INR 1.0 (0.9-1.1) 02/04/21 08:01 APTT 26.9 Seconds (21.0-31.0) 02/04/21 08:01 PTT Ratio 1.0 02/04/21 08:01 Sodium 135 mmol/L (136-145) L 02/05/21 05:53 Potassium 4.7 mmol/L (3.5-5.1) 02/05/21 05:53 Chloride 103 mmol/L (98-107) 02/05/21 05:53 Carbon Dioxide 26 mmol/L (21-32) 02/05/21 05:53 Anion Gap 6.0 (3-11) 02/05/21 05:53 BUN 31 mg/dl (7-18) H 02/05/21 05:53 Creatinine 1.72 mg/dl (0.6-1.2) H 02/05/21 05:53 Est Cr Clr Drug Dosing 50.2 ml/min 02/05/21 05:53 Est GFR ( Amer) 36.6 ml/min 02/05/21 05:53 Est GFR (Non-Af Amer) 31.5 ml/min 02/05/21 05:53 BUN/Creatinine Ratio 17.8 (10-20) 02/05/21 05:53 Glucose 122 mg/dl (70-99) H 02/05/21 05:53 Calcium 8.6 mg/dl (8.5-10.1) 02/05/21 05:53 COVID-19 Eval Order Covid19 IDNow [facility] 02/04/21 Unknown SARS-CoV-2, RNA, NAAT NEGATIVE (NEGATIVE) 02/04/21 Unknown Blood Type A Positive 02/04/21 08:01 Antibody Screen NEGATIVE 02/04/21 08:01 Impressions Knee X-Ray 02/04/21 13:20 XR knee LT 1 or 2V routine HISTORY: 60 years-old Female Surgical Post Op left knee total joint arthroplasty COMPARISON: None TECHNIQUE: 2 views of the left knee FINDINGS: Left knee total joint arthroplasty and patella resurfacing. Anterior midline skin rhea are noted along with expected postoperative soft tissue swelling and deep tissue air. Surgical drainage catheter. No acute fracture, dislocation or unexpected opaque foreign body. IMPRESSION: Left knee total joint arthroplasty with expected postoperative changes. ACT 112: Negative or not required by law. The above report was generated using voice recognition software. It may contain grammatical, syntax or spelling errors. Electronically signed by: Vinny Maki M.D. 02/04/2021 1:51 PM
[2021-02-05] MEDS ORDERED: MULTIVITAMIN TAB PO SCH (09:00)
[2021-02-05] MEDS ORDERED: CHOLECALCIFEROL 1,000 UNITS 25 MCG TAB PO SCH (09:00)
[2021-02-05] MEDS ORDERED: SERTRALINE HCL 100 MG TABLET PO SCH (09:00)
[2021-02-05] MEDS: ASPIRIN 81 MG ECTAB PO SCH (09:26)
[2021-02-05] MEDS: DOCUSATE SODIUM 100 MG CAP PO SCH (09:27)
[2021-02-05 14:06] LABS: BUN Creatinine Ratio 20.3 (10-20); Creatinine Clr Calc Pharmacy 51.7 ml/min; Est GFR (African American) 37.9 ml/min; Est GFR (Non-African American) 32.7 ml/min
--- NOTE | 2021-02-05 17:50 | Discharge Summary ---
Date of Service date of discharge: February 05, 2021 date of admission: 02-04-21 Admission HPI Per Admitting Provider Ms Meeks is a 60 year old female who complains of left knee pain, presents for pre-op eval prior to a left total knee replacement. She presents with pain and stiffness in her left knee. She states that the symptoms have been chronic non- traumatic. Currently the patient states that the symptoms are moderate and is described as aching and throbbing. She rates her current pain as 6/10. The symptoms are aggravated by daily activities, kneeling and movement. she states that she has tried physical therapy as well as previous cortisone and visco injections without relief. she has tried IBU and now not able to take due to kidney disease. she does wear a brace on her left knee. she recently underwent right TKA and is recovering well. Principal Diagnosis left knee arthritis Discharge Exam Constitutional WD/WN, vitals as above Musculoskeletal left knee: NVDI, calf SNT, negative jose sign. DP palpable, able to wiggle toes/ankle movement without difficulty. dressing clean dry and intact. expected post-operative bruising noted. Laboratory Results WBC 11.49 K/uL (4.8-10.8) H 02/05/21 05:53 RBC 4.41 M/uL (4.2-5.4) 02/05/21 05:53 Hgb 11.5 g/dL (12.0-16.0) L 02/05/21 05:53 Hct 35.4 % (37-47) L 02/05/21 05:53 MCV 80.3 fL (80-100) 02/05/21 05:53 MCH 26.1 pg (25-34) 02/05/21 05:53 MCHC 32.5 g/dL (32-36) 02/05/21 05:53 RDW Std Deviation 45.8 fL (36.4-46.3) 02/05/21 05:53 RDW Coeff of Adi 15.5 % (11.5-14.5) H 02/05/21 05:53 Plt Count 202 K/uL (130-400) 02/05/21 05:53 MPV 9.5 fL (7.4-10.4) 02/05/21 05:53 PT 10.4 Seconds (9.0-12.0) 02/04/21 08:01 INR 1.0 (0.9-1.1) 02/04/21 08:01 APTT 26.9 Seconds (21.0-31.0) 02/04/21 08:01 PTT Ratio 1.0 02/04/21 08:01 Sodium 136 mmol/L (136-145) 02/05/21 13:11 Potassium 4.0 mmol/L (3.5-5.1) 02/05/21 13:11 Chloride 103 mmol/L (98-107) 02/05/21 13:11 Carbon Dioxide 26 mmol/L (21-32) 02/05/21 13:11 Anion Gap 7.0 (3-11) 02/05/21 13:11 BUN 34 mg/dl (7-18) H 02/05/21 13:11 Creatinine 1.67 mg/dl (0.6-1.2) H 02/05/21 13:11 Est Cr Clr Drug Dosing 51.7 ml/min 02/05/21 13:11 Est GFR ( Amer) 37.9 ml/min 02/05/21 13:11 Est GFR (Non-Af Amer) 32.7 ml/min 02/05/21 13:11 BUN/Creatinine Ratio 20.3 (10-20) H 02/05/21 13:11 Glucose 111 mg/dl (70-99) H 02/05/21 13:11 Calcium 9.0 mg/dl (8.5-10.1) 02/05/21 13:11 COVID-19 Eval Order Covid19 IDNow [facility] 02/04/21 Unknown SARS-CoV-2, RNA, NAAT NEGATIVE (NEGATIVE) 02/04/21 Unknown Blood Type A Positive 02/04/21 08:01 Antibody Screen NEGATIVE 02/04/21 08:01 Impressions Knee X-Ray 02/04/21 13:20 XR knee LT 1 or 2V routine HISTORY: 60 years-old Female Surgical Post Op left knee total joint arthroplasty COMPARISON: None TECHNIQUE: 2 views of the left knee FINDINGS: Left knee total joint arthroplasty and patella resurfacing. Anterior midline skin rhea are noted along with expected postoperative soft tissue swelling and deep tissue air. Surgical drainage catheter. No acute fracture, dislocation or unexpected opaque foreign body. IMPRESSION: Left knee total joint arthroplasty with expected postoperative changes. ACT 112: Negative or not required by law. The above report was generated using voice recognition software. It may contain grammatical, syntax or spelling errors. Electronically signed by: Vinny Maki M.D. 02/04/2021 1:51 PM Discharge Data Allergies Allergy/AdvReac Type Severity Reaction Status Date / Time No Known Allergies Allergy Verified 02/04/21 08:00 Procedures Performed Operation Date: 02/04/21 10:10 Actual Procedures p Left Total Knee Arthroplasty(Left) - Sergio Romeo DO Ordered Studies 02/04/21 05:00 US - OR guided needle placemen Routine Hospital Course (1) Arthritis of knee, left: Postop day 1 status post left total knee arthroplasty. PT/OT protocols. Weightbearing as tolerated. DVT prophylaxis-aspirin p.o. twice daily, SCDs, [place]MO [place]. Pain management as written. CKD-plan for normal saline bolus this morning and we will recheck her creatinine later this afternoon. We discussed that if her creatinine is worsening, she would likely stay 1 more day possibly to receive IV fluids, however if it is the same or a little bit better we will plan on discharging her home with plans to do a BMP through home health in a few days. Plans to be to follow-up with her primary care physician in the next week. Discharge planning-patient is planning for home health services upon discharge. Total Time Total Time Spent Total Time Spent (In Minutes): 20 Total Time Includes: Examination of the Patient, Discharge Planning and Medication Reconciliation Discharge Plan Discharge Items Patient Disposition: Home - Home Health Services Reason For Visit: Osteoarthritis, Left Knee Discharge Diagnosis: left total knee replacement Activity: Per Instructions section Weightbearing: Left weightbearing Weightbearing Comment: As tolerated with walker Non-emergency contact: Surgeon Call non-emergency contact if: your symptoms worsen, your pain is not controlled, your temperature is above 101, your wound has increased redness, your wound has increased drainage and your wound pain has increased Follow-up/Referrals: Pete Cole DO [Primary Care Provider] - 02/11/21 10:30 am Diet: Regular Ambulatory Orders: Basic Metabolic Panel (Routine) Timeframe: [id number] Location: Determined by Patient Ordered By: Ti Rg Attending Provider Instructions: YOU WILL BE HAVING YOUR BLOOD DRAWN BY HOME HEALTH SERVICES NEXT WEDNESDAY. PLEASE HAVE RESULTS SENT TO YOUR PRIMARY CARE PROVIDER. Continue to remain well hydrated drinking water regularly. ACTIVITY RECOMMENDATIONS: SELF CARE INSTRUCTIONS AFTER TOTAL KNEE REPLACEMENT A. You may need to continue a physical therapy program after discharge from the hospital. There are several options available to you. Your doctor will assist you in selecting the best one for you. 1. An out-patient facility 2 to 3 times a week for therapy or home therapy. 2. Continue working on all exercises taught to you in the hospital. Your goals should be to increase bending of your knee to 90 degrees and beyond and to fully straighten your knee. B. You may progress at your own pace from walking with a walker or crutches to a cane; then to no assistive devices. C. Make walking a part of your daily routine. Be up as much as comfortable with rest periods throughout the day. Rest with leg elevation is very important. Use the ice wrap frequently for the first 3-4 weeks. D. There are no restrictions on activities. You may ride in a car, shop, participate in rn perinatal and all social activities. E. Wear the long elastic stockings (ELMO hose) 20 hours a day for 2 weeks after surgery. They can be removed several times a day for laundering and for a bath. F. You may shower, no tub baths until cleared by your doctor. SPECIAL CARE INSTRUCTIONS: VERY IMPORTANT TO READ AND REVIEW A. There are a few signs you need to watch for after you are home. Call [facility] if you notice any of the followin. Increased severe knee pain. Some pain is expected especially when you exercise. 2. Increased swelling in your leg or knee; pain or swelling of the calf muscle in either lower leg. 3. Any fluid drainage from the incision. 4. Shortness of breath or chest pain. B. Please call [facility] at if you have any concerns or questions about your operation or recovery. The doctor or his nurse will return your call promptly. C. You must take antibiotics before dental work, bladder, bowel or other surgery. Your doctor will provide you with a permanent care to carry describing this precaution. IMPORTANT: * REMEMBER TO TAKE ASPIRIN, 81 MG, TWICE DAILY FOR 4 WEEKS UNLESS OTHERWISE DIRECTED. THIS IS YOUR BLOOD THINNER. * HIGH RISK PATIENTS MAY BE PRESCRIBED A STRONGER BLOOD THINNER. THIS WILL BE PROVIDED AT DISCHARGE. * CALL IF INCREASED PAIN, REDNESS, DRAINAGE OR FEVER GREATER THAT 101. * WEAR ELMO HOSE 20 HOURS PER DAY FOR 2 WEEKS. * SAGAR Dressing- This is a large suction dressing covering your incision. This will help pull any excess drainage from the wound and allow your incision to heal properly. You may shower with this if you can keep the unit outside of the shower. If any bleeding or leakage is noted please call your doctor's office. This will remain on your incision for 7 days and then should be removed. This can be done yourself or by the home nursing staff if applicable. The entire unit is disposable once removed. Once removed, keep incision clean and dry. If redness or drainage is noted, please call your surgeon. IF INCISION IS LEAKING THROUGH DRESSING, CALL THE OFFICE . FOLLOW UP VISIT: If appointment is not already scheduled: Please call [facility] to make a follow-up appointment for 2 weeks after your surgery at . FOLLOW UP WITH YOUR PRIMARY CARE PHYSICIAN IN 1 WEEK. Stand-Alone Forms: [facility], Opioid Pain Management, Smoking Cessation Medications and DC Order Prescriptions: New aspirin 81 mg Tablet,Delayed Release (Dr/Ec) 81 mg PO BID 30 Days Qty: 60 RF: 0 acetaminophen 500 mg Tablet 1,000 mg PO Q8 14 Days Qty: 84 RF: 0 polyethylene glycol 3350 [Miralax] 17 gram powder in packet 17 g PO DAILY PRN (Reason: constipation) Qty: 5 RF: 0 cefadroxil 500 mg capsule 500 mg PO BID Qty: 28 RF: 1 oxycodone 5 mg Tablet 5 mg PO Q4H MDD 6 PRN (Reason: pain) Qty: 30 RF: 0 Continued sertraline [Zoloft] 100 mg Tablet 100 mg PO QAM RF: 0 atenolol 50 mg Tablet 50 mg PO HS RF: 0 cholecalciferol (vitamin D3) [Vitamin D3] 50 mcg (2,000 unit) Tablet 50 mcg PO QAM RF: 0 febuxostat [Uloric] 40 mg Tablet 40 mg PO QAM RF: 0 omeprazole 20 mg Tablet,Disintegrat, Delay Rel 20 mg PO QAM RF: 0 Discontinued oxycodone 5 mg Tablet 5 - 10 mg PO Q6H PRN (Reason: pain) Qty: 30 RF: 0 Discharge Orders: Discharge Order (Routine); Ordered 02/05/21 Ordered By: Ti Landa/Other Patient Handouts: Total Knee Replacement Admission Data Admit Date/Time: 02/04/21 13:20 Attending Provider: Sergio Romeo Admit Provider: Sergio Romeo Primary Care Provider: Pete Cole Other Interventions: Discharge Summary Assessment (RN) Last Done: 02/05/21 14:26
[2021-02-05] MEDS ORDERED: CeleBREX 200 MG CAP PO SCH (21:00)
== END 2021-02-05 16:15 | disposition home health service (06) ==
LOC: 3N 07:26 → ASU 07:26